=== PATIENT | female | born 1935 | race Caucasian/White ===

== ENCOUNTER → 2021-08-13 | Outpatient (CLI) | payer MEDICARE | END | disposition home or self-care (01) | LOC: VAS 15:13 | PROVIDERS: ATTEND Family Medicine | DX: R60.0 Localized edema (principal) | CPT/HCPCS: 93971 ==

== ENCOUNTER 2022-05-05 14:05 | Outpatient (CLI) | payer MEDICARE | END 2022-05-05 23:59 | disposition home or self-care (01) | LOC: CARD DIAG 14:05 | PROVIDERS: ATTEND Family Medicine | DX: I08.0 Rheumatic disorders of both mitral and aortic valves (principal) | CPT/HCPCS: 93306 ==

== ENCOUNTER 2022-08-10 11:19 | Emergency (ER) | payer MEDICARE ==
[~2022-08-10] VITALS: Ht 157.5 cm; Wt 52.3 kg
[2022-08-10 11:23] VITALS: BP 118/52
== END 2022-08-10 13:32 | disposition left against medical advice (07) ==
LOC: ER 11:19
DX: T85.9XXA Unspecified complication of internal prosthetic device, implant and graft, initial encounter (principal); Z53.21 Procedure and treatment not carried out due to patient leaving prior to being seen by health care provider; X58.XXXA Exposure to other specified factors, initial encounter; Y93.9 Activity, unspecified; Y92.9 Unspecified place or not applicable; Y99.9 Unspecified external cause status

== ENCOUNTER 2024-09-09 11:59 | Outpatient (CLI) | payer MEDICARE | END 2024-09-09 23:59 | disposition home or self-care (01) | LOC: CARD DIAG 11:59 | PROVIDERS: ATTEND Family Medicine | DX: I08.2 Rheumatic disorders of both aortic and tricuspid valves (principal); R01.1 Cardiac murmur, unspecified | CPT/HCPCS: 93306 ==

== ENCOUNTER 2025-02-18 11:46 | Outpatient (CLI) | payer MEDICARE | END 2025-02-18 23:59 | disposition home or self-care (01) | LOC: VAS 11:46 | PROVIDERS: ATTEND Family Medicine | DX: I82.532 Chronic embolism and thrombosis of left popliteal vein (principal); R22.42 Localized swelling, mass and lump, left lower limb | CPT/HCPCS: 93971 ==